=== PATIENT | female | born 1990 | race Caucasian/White ===

== ENCOUNTER 2019-05-31 13:22 | Emergency (ER) | payer SELFPAY ==
[2019-05-31 13:28] VITALS: BP 134/86
[2019-05-31] MEDS ORDERED: IBUPROFEN 800 MG TABLET PO ONE (13:36)
--- NOTE | 2019-05-31 13:41 | ER Document Report ---
HPI - HPI Patient complains to provider of: right ankle pain Time Seen by Provider: 05/31/19 13:32 Onset: Last week Onset/Duration: Persistent Quality of pain: Achy Severity: Severe Pain Level: 5 Context: This 29-year-old female presents emergency department with complaints of right ankle pain. She reports she was coming down and lost steps when she fell scraped her left knee and rolled her right ankle. Denies past medical history of fracture to the ankle. Denies other symptoms such as fever vomiting diarrhea. Patient reports she has been walking on the ankle all week but it still continues to hurt with some swelling. She has been taking ibuprofen without relief of symptoms. Has not taken anything today. Associated Symptoms: None Exacerbated by: Walking Relieved by: Denies Similar symptoms previously: No Recently seen / treated by doctor: No - REPRODUCTIVE Reproductive: DENIES: : Past Medical History - General Information source: Patient Last Menstrual Period: beginning of may - Social History Smoking Status: Unknown if Ever Smoked Cigarette use (# per day): No Frequency of alcohol use: None Drug Abuse: None Family History: Reviewed & Not Pertinent Patient has suicidal ideation: No Patient has homicidal ideation: No - Medical History Medical History: Negative Surgical Hx: Negative - Immunizations Hx Diphtheria, Pertussis, Tetanus Vaccination: No Vertical Provider Document - CONSTITUTIONAL Agree With Documented VS: Yes Exam Limitations: No Limitations General Appearance: WD/WN, No Apparent Distress - INFECTION CONTROL TRAVEL OUTSIDE OF THE [place] IN LAST 30 DAYS: No - HEENT HEENT: Atraumatic, Normocephalic - NECK Neck: Supple - RESPIRATORY Respiratory: No Respiratory Distress - CARDIOVASCULAR Cardiovascular: Regular Rate - MUSCULOSKELETAL/EXTREMETIES Musculoskeletal/Extremeties: MAEW, FROM, Tender - right ankle ttp, no obvious deformity, no erythema, no obvious swelling, no warmth, good pedal pulse - NEURO Level of Consciousness: Awake, Alert, Appropriate Motor/Sensory: No Motor Deficit - DERM Integumentary: Warm, Dry Adult Front & Back Diagram: 1 - c/o pain Course - Re-evaluation Re-evalutation: 05/31/19 14:23 29-year-old female presents to the emergency department with right ankle pain after she twisted it last week while walking down some steps. 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 Reports she is been taking Motrin for the pain but is not really helping. Ankle X-Ray 05/31/19 13:32 IMPRESSION: No fracture or dislocation of the right ankle. Soft tissue swelling over the lateral malleolus. - Vital Signs Vital signs: Temp Pulse Resp BP Pulse Ox 97.9 F 83 18 134/86 H 99 05/31/19 13:26 05/31/19 13:26 05/31/19 13:26 05/31/19 13:26 05/31/19 13:26 - Diagnostic Test Radiology reviewed: Image reviewed, Reports reviewed Procedures - Immobilization Right Ankle Pre-Proc Neuro Vasc Exam: Normal Immobilizer type: Ankle stirrup Performed by: PCT Post-Proc Neuro Vasc Exam: Unchanged from pre-exam Alignment checked and good: Yes Discharge - Discharge Clinical Impression: Right ankle pain Qualifiers: Chronicity: acute Qualified Code(s): M25.571 - Pain in right ankle and joints of right foot Condition: Stable Disposition: HOME, SELF-CARE Instructions: Ankle Stirrup Splint ([facility]), Use of [id number]-Cizgymw Ibuprofen ([facility]), Ice & Elevation ([facility]) Additional Instructions: *You have been evaluated for a right ankle injury *Rest/Ice/Elevate your ankle *Maintain the splint for comfort *Follow up with orthopedics for continued pain within one week-call for an appointment *Take motrin as indicated for pain *Return to ED for worsening condition, changes, needs Monitor your blood pressure. Your blood pressure was elevated today. This may be because you were anxious, in pain or because you need medication. It is important to follow up with your primary care provider for full evaluation. Forms: Elevated Blood Pressure, Return to Work
--- NOTE | 2019-05-31 14:22 | RADIOLOGY REPORT (SQ) ---
EXAM DESCRIPTION: ANKLE RIGHT COMPLETE COMPLETED DATE/TIME: 05/31/2019 2:11 pm REASON FOR STUDY: hurt one week ago, pain COMPARISON: 08/03/2015 NUMBER OF VIEWS: Three views. TECHNIQUE: AP, lateral, and oblique radiographic images acquired of the right ankle. LIMITATIONS: None. FINDINGS: MINERALIZATION: Normal. BONES: No acute fracture or dislocation. No worrisome bone lesions. JOINTS: No effusions. SOFT TISSUES: Soft tissue swelling over the lateral malleolus. No foreign body. OTHER: No other significant finding. IMPRESSION: No fracture or dislocation of the right ankle. Soft tissue swelling over the lateral ma lleolus. TECHNICAL DOCUMENTATION: JOB ID: [id number] [email or web address]- All Rights Reserved Reading location - IP/workstation name: [email or web address]
== END 2019-05-31 14:32 | disposition home or self-care (01) ==
LOC: ER 13:22
PROC: 2W3QX1Z Immobilization of Right Lower Leg using Splint (ICD-10-PCS; principal; 2019-05-31)
DX: M25.571 Pain in right ankle and joints of right foot (principal); W10.9XXA Fall (on) (from) unspecified stairs and steps, initial encounter
CPT/HCPCS: 73610; 29515; L1902; 99283